=== PATIENT | female | born 1975 | race African-American/Black ===

== ENCOUNTER 2021-11-10 07:50 | Emergency (ER) | payer OTHER ==
[~2021-11-10] VITALS: Ht 165.1 cm; Wt 71.0 kg
[2021-11-10] MEDS ORDERED: ASPIRIN 81MG TABLET PO ONE (08:15)
[2021-11-10] MEDS ORDERED: KETOROLAC 15MG/ML VIAL IV ONE (08:30)
[2021-11-10 09:08] LABS: BASOPHILS % 1.2 % (0.0-2.0); EOSINOPHILS % 3.5 % (0.0-5.0); HEMATOCRIT. 39.9 % (36.0-48.0); HEMOGLOBIN. 13.4 g/dL (12.0-16.0); LYMPHOCYTES % 47.1 % (20.0-50.0); MEAN CORPUSCULAR VOLUME 92.4 fL (81.0-99.0); MEAN PLATELET VOLUME 7.6 fl (7.4-10.4); MONOCYTES % 7.2 % (2.0-8.0); PLATELET 201 x1000/uL (130-400); RED BLOOD CELL COUNT 4.32 mill/uL (4.2-5.4); RED CELL DISTRIBUTION WIDTH 14.3 % (11.6-14.6)
[2021-11-10 09:15] LABS: CHLORIDE 111 mEq/L (98-107)
[2021-11-10 09:26] LABS: B-HCG QUANTITATIVE < 1.0 mIU/mL (<3)
[2021-11-10] MEDS ORDERED: KETOROLAC 15MG/ML VIAL IV NR (09:45)
[2021-11-10] MEDS ORDERED: ASPIRIN 81MG TABLET PO NR (09:45)
[2021-11-10 10:04] VITALS: BP 146/80
== END 2021-11-10 10:09 | disposition home or self-care (01) ==
LOC: ER 07:50
DX: M79.602 Pain in left arm (principal)
CPT/HCPCS: 36415; 71045; 80053; 83880; 84484; 84702; 85025; 96374; 99285; J1885